=== PATIENT | female | born 1945 | race Asian ===

== ENCOUNTER 2016-07-10 10:49 | Outpatient (CLI) | payer MEDICARE, OTHER | END 2016-07-10 10:50 | disposition home or self-care (01) | DX: N63 Unspecified lump in breast (principal) | CPT/HCPCS: 76642; G0204 ==

== ENCOUNTER 2016-07-18 09:50 | Outpatient (CLI) | payer MEDICARE, OTHER ==
[2016-07-18] MEDS ORDERED: BUFFERED LIDOCAINE 10 ML SYRINGE IU ONE (15:44)
[2016-07-18] MEDS ORDERED: BUPIVACAINE 0.5% PF 30 ML VIAL ID ONE (15:51)
[2016-07-18] MEDS ORDERED: BUPIVACAINE 0.5%-EPI 1:200000 PF 10 ML VIAL ID ONE (15:54)
[2016-07-18] MEDS ORDERED: SODIUM CHLORIDE 0.9% EPI SCH (16:00)
[2016-07-18] MEDS ORDERED: BUPIVACAINE 0.5% EPI SCH (16:00)
== END 2016-07-18 09:51 | disposition home or self-care (01) ==
DX: C50.511 Malignant neoplasm of lower-outer quadrant of right female breast (principal); Z17.1 Estrogen receptor negative status [ER-]
CPT/HCPCS: 19083; G0206

== ENCOUNTER 2017-09-02 12:41 | Outpatient (CLI) | payer MEDICARE, OTHER | END 2017-09-02 12:42 | disposition home or self-care (01) | LOC: DI 12:41 | PROVIDERS: ATTEND Internal Medicine Hematology & Oncology | DX: C50.911 Malignant neoplasm of unspecified site of right female breast (principal); Z90.13 Acquired absence of bilateral breasts and nipples; I51.7 Cardiomegaly | CPT/HCPCS: 93306 ==

== ENCOUNTER 2018-02-12 14:57 | Outpatient (CLI) | payer MEDICARE, OTHER ==
--- NOTE | 2018-02-13 09:51 | DEXA Report ---
Reason: BONE DISORDER Procedure Date: 02/12/2018 Accession Number: [id number] / [id number] Procedure: DEX - Dexa Spine and/or Hip CPT Code: FULL RESULT: EXAM: Dexa Spine and/or Hip DATE: 02/12/2018 4:13 PM CLINICAL HISTORY: BONE DISORDER TECHNIQUE: Dual energy x-ray absorptiometry (DXA) was performed on a [employer] System. Regions measured are the AP Spine, femoral neck, and if needed forearm. COMPARISON: None. In accordance with the International Society for Clinical Densitometry (ISCD) guidelines, data from previous exams may be reanalyzed using current recommendations and techniques. This is done to allow a more accurate basis for comparison with the current study. FINDINGS: The data for the lumbar spine is as follows: BMD (g/cm/cm) T-SCORE Z-SCORE REGION L1 1.243 0.9 2.3 L2 1.349 1.2 2.6 L3 1.363 1.4 2.7 L4 1.405 1.7 3.0 TOTAL 1.342 1.4 2.7 NOTE: All evaluable vertebrae are used for classification The data for the hip is as follows: BMD (g/cm/cm) T-SCORE Z-SCORE REGION Neck 0.907 -0.9 0.6 TOTAL 1.020 0.1 1.4 NOTE: The femoral neck or total proximal femur, whichever is lowest, is used for classification. IMPRESSION: THE WHO CLASSIFICATION BASED ON THE INTERNATIONAL REFERENCE STANDARD IS NORMAL. THE FRACTURE RISK IS NOT INCREASED. RECOMMENDATION: Patients with diagnosis of osteoporosis or osteopenia should have regular bone mineral density assessment. For those eligible for Medicare, routine testing is allowed once every 2 years. Testing frequency can be increased for patients who have rapidly progressing disease or for those who are receiving medical therapy to restore bone mass. COMMENT: World Health Organization (WHO) definitions for osteoporosis and osteopenia: NORMAL BMD: T-score at -1.0 or higher, fracture risk is low OSTEOPENIA BMD: T-score between -1.0 and -2.5, fracture risk is increased. OSTEOPOROSIS BMD: T-score at -2.5 or lower, fracture risk is high. National Osteoporosis Foundation recommends: 1. Obtain adequate dietary calcium (at least 1200 mg per day) and vitamin D (400-800 international units per day). 2. Participate, as appropriate, in regular weightbearing and muscle-strengthening exercise. 3. Avoid tobacco use and reduce alcohol and caffeine intake. 4. For more detailed information see the website at www.NOF.org.
== END 2018-02-12 14:58 | disposition home or self-care (01) ==
LOC: DI 14:57
PROVIDERS: ATTEND Family Medicine
DX: M89.9 Disorder of bone, unspecified (principal)
CPT/HCPCS: 77080

== ENCOUNTER 2018-08-18 09:45 | Outpatient (CLI) | payer MEDICARE, OTHER ==
[2018-08-18 13:36] LABS: HB2 TOTAL 13.8 g/dL; HEMOGLOBIN A1C 0.6 g/dL; HEMOGLOBIN A1C % 6.1 % (4.6-6.2)
[2018-08-18 13:49] LABS: CHOL/HDL RATIO 3.8 (<4.4); CHOLESTEROL 132 mg/dL; HDL CHOLESTEROL 35 mg/dL; LDL CHOLESTEROL,CALCULATED 65 mg/dL; LDL/HDL RATIO 1.9 (<4.4); URIC ACID 4.1 mg/dL (2.6-7.2); VLDL CHOLESTEROL 32 mg/dL
== END 2018-08-18 09:46 | disposition home or self-care (01) ==
LOC: LAB.WCP 09:45
PROVIDERS: ATTEND Family Medicine
DX: E78.5 Hyperlipidemia, unspecified (principal); R73.01 Impaired fasting glucose; E03.9 Hypothyroidism, unspecified; M10.9 Gout, unspecified
CPT/HCPCS: 36415; 80061; 83036; 83721; 84443; 84550

== ENCOUNTER 2018-08-25 11:01 | Outpatient (CLI) | payer MEDICARE, OTHER ==
--- NOTE | 2018-08-25 13:22 | XRAY Report ---
Reason: FOOT PAIN,LEFT Procedure Date: 08/25/2018 Accession Number: [id number] / [id number] Procedure: WCP - Foot 3 View LT CPT Code: FULL RESULT: EXAM: LEFT FOOT RADIOGRAPHY EXAM DATE: 08/25/2018 11:21 AM. CLINICAL HISTORY: Foot pain, left. COMPARISON: None. TECHNIQUE: 3 views. FINDINGS: Bones: There is an oblique fracture distal diaphysis and metadiaphysis of the fifth metatarsal with 3 mm of medial displacement of distal fracture fragment. No additional fractures identified. Joints: Normal. No subluxations. Soft Tissues: There is soft tissue swelling adjacent to the fracture. IMPRESSION: Oblique fracture fifth metatarsal as described. RADIA
== END 2018-08-25 11:02 | disposition home or self-care (01) ==
LOC: DI.WCP 11:01
PROVIDERS: ATTEND Family Medicine
DX: S92.352A Displaced fracture of fifth metatarsal bone, left foot, initial encounter for closed fracture (principal)

== ENCOUNTER 2020-01-27 10:50 | Outpatient (CLI) | payer MEDICARE, OTHER ==
[2020-01-27 18:11] LABS: BASOPHILS # (AUTO) 0.1 10^3/uL (0.0-0.1); BASOPHILS % (AUTO) 1.1 %; EOSINOPHILS # (AUTO) 0.1 10^3/uL (0.0-0.7); EOSINOPHILS % (AUTO) 2.3 %; HGB - HEMOGLOBIN 13.4 g/dL (12.0-16.0); LYMPHOCYTES # (AUTO) 2.1 10^3/uL (1.5-3.5); LYMPHOCYTES % (AUTO) 36.3 %; MEAN CORPUSCULAR HEMOGLOBIN 29.3 pg (27.0-31.0); MEAN CORPUSCULAR HGB CONC 31.9 g/dL (32.0-36.0); MEAN CORPUSCULAR VOLUME 91.9 fL (81.0-99.0); MEAN PLATELET VOLUME 12.2 fL (7.9-10.8); MONOCYTES # (AUTO) 0.4 10^3/uL (0.0-1.0); MONOCYTES % (AUTO) 7.6 %; NEUTROPHILS % (AUTO) 52.3 %; PLT - PLATELET COUNT 207 10^3/uL (130-450); RED BLOOD COUNT 4.57 10^6/uL (4.20-5.40); RED CELL DISTRIBUTION WIDTH 14.7 % (12.0-15.0); WHITE BLOOD COUNT 5.7 x10^3/uL (4.8-10.8)
[2020-01-27 18:26] LABS: ALBUMIN 4.3 g/dL (3.2-5.5); ALBUMIN/GLOBULIN RATIO 1.4 (1.0-2.2); ALKALINE PHOSPHATASE 44 IU/L (42-121); ALT ALANINE AMINOTRANSFERASE 20 IU/L (10-60); AST ASPARTATE AMINOTRANSFERASE 22 IU/L (10-42); BILIRUBIN,TOTAL 0.6 mg/dL (0.2-1.0); BUN - BLOOD UREA NITROGEN 18 mg/dL (6-20); CALCIUM 9.5 mg/dL (8.5-10.3); CARBON DIOXIDE - CO2 27 mmol/L (21-32); CHLORIDE 104 mmol/L (101-111); CHOL/HDL RATIO 3.3 (<4.4); CHOLESTEROL 143 mg/dL; CREATININE 0.8 mg/dL (0.4-1.0); GLUCOSE 106 mg/dL (70-100); HDL CHOLESTEROL 43 mg/dL; LDL CHOLESTEROL,CALCULATED 77 mg/dL; LDL/HDL RATIO 1.8 (<4.4); SODIUM 139 mmol/L (135-145); TOTAL PROTEIN 7.4 g/dL (6.7-8.2); URIC ACID 3.7 mg/dL (2.6-7.2); VLDL CHOLESTEROL 23 mg/dL
[2020-01-27 18:36] LABS: CREATININE,URINE 177.4 mg/dL; MICROALBUM/CREATININE RATIO,UR 19.2 ug/mg (<30.0); MICROALBUMIN,URINE 3.4 mg/dL (0-300.0)
[2020-01-27 20:24] LABS: HEMOGLOBIN A1c% 5.8 % (4.27-6.07)
== END 2020-01-27 23:59 | disposition home or self-care (01) ==
LOC: LAB.WCP 10:50
PROVIDERS: ATTEND Family Medicine
DX: R73.01 Impaired fasting glucose (principal); E78.5 Hyperlipidemia, unspecified; M10.00 Idiopathic gout, unspecified site; E03.9 Hypothyroidism, unspecified; I10 Essential (primary) hypertension
CPT/HCPCS: 36415; 80053; 80061; 82043; 82570; 83036; 83721; 84443; 84550; 85025

== ENCOUNTER 2020-06-27 08:59 | Outpatient (CLI) | payer MEDICARE, OTHER ==
--- NOTE | 2020-06-27 11:06 | XRAY Report ---
PROCEDURE: Lumbar Spine 2 View INDICATIONS: RIGHT LUMBAR RADICULOPATHY TECHNIQUE: 2 views of the lumbar spine were acquired. COMPARISON: None. FINDINGS: Bones: 5 [id number] vertebrae are present. There is trace retrolisthesis of L2 on L3, L3 on L4 . Severe disc space narrowing is present at L5-S1, moderate L4-5, L5-S1 and mild throughout the remai nder of the lumbar spine. Severe foraminal narrowing is noted L5-S1, mild to moderate throughout the remainder of the lumbar spine. Nonbridging anterior osteophytes are present. No vertebral body compre ssion fractures. No suspicious bony lesions. Soft tissues: Overlying bowel gas pattern is normal. No suspicious soft tissue calcifications. Ath erosclerotic calcification of the aorta is present. IMPRESSION: Degenerative changes most notable at L5-S1 as above. Reviewed by: Ana Rivas MD on 06/27/2020 11:05 AM PDT Approved by: Ana Rivas MD on 06/27/2020 11:05 AM PDT Station ID: [id number]
--- NOTE | 2020-06-27 13:53 | XRAY Report ---
PROCEDURE: Hand 3 View RT INDICATIONS: RIGHT HAND PAIN TECHNIQUE: 3 views of the hand(s) acquired. COMPARISON: None FINDINGS: Bones: No fractures or dislocations. No suspicious bony lesions. There are moderate scattered IP d egenerative narrowing, moderate to severe at the DIP joints of the third and fifth digits. There is m oderate to severe first PIP joint degenerative narrowing with subluxation. Scattered areas of periart icular osteophyte are present. Soft tissues: No suspicious soft tissue calcifications. IMPRESSION: Arthritic changes as above most severe at the third and fifth digits. Reviewed by: Ana Rivas MD on 06/27/2020 1:52 PM PDT Approved by: Ana Rivas MD on 06/27/2020 1:52 PM PDT Station ID: [id number]
== END 2020-06-27 23:59 | disposition home or self-care (01) ==
LOC: DI.WCP 08:59
PROVIDERS: ATTEND Family Medicine
DX: M47.27 Other spondylosis with radiculopathy, lumbosacral region (principal); M79.641 Pain in right hand; M19.041 Primary osteoarthritis, right hand

== ENCOUNTER 2021-05-08 11:06 | Outpatient (CLI) | payer MEDICARE, OTHER ==
--- NOTE | 2021-05-08 16:21 | XRAY Report ---
PROCEDURE: Chest 2 View X-Ray INDICATIONS: COUGH TECHNIQUE: 2 view(s) of the chest. COMPARISON: None. FINDINGS: Surgical changes and devices: Surgical clips projecting over the right axilla.. Lungs and pleura: No pleural effusions or pneumothorax. Lungs are clear. Mediastinum: Mediastinal contours are normal. Heart size is normal. Bones and chest wall: No suspicious bony abnormalities. Soft tissues appear unremarkable. IMPRESSION: No acute cardiopulmonary disease process. Reviewed by: Kristen Wilkins MD, PhD on 05/08/2021 4:20 PM PST Approved by: Kristen Wilkins MD, PhD on 05/08/2021 4:20 PM PST Station ID: [id number]
== END 2021-05-08 11:07 | disposition home or self-care (01) ==
LOC: DI.N 11:06
PROVIDERS: ATTEND Family Medicine
DX: R05.9 Cough, unspecified (principal)

== ENCOUNTER 2021-07-16 10:36 | Outpatient (CLI) | payer MEDICARE, OTHER ==
--- NOTE | 2021-07-16 11:38 | XRAY Report ---
PROCEDURE: Shoulder 3 View LT INDICATIONS: L SHOULDER PX TECHNIQUE: 3 views of the shoulder were acquired. COMPARISON: None. FINDINGS: Bones: No fractures or dislocations. Moderate acromioclavicular joint and glenohumeral joint osteop hytic changes are seen. No suspicious bony lesions. Visualized ribs appear intact. Soft tissues: No suspicious soft tissue calcifications. IMPRESSION: Moderate left shoulder joint osteoarthritis. No fracture or dislocation. No gross soft t issue abnormality. Reviewed by: Bruce Giraldo MD on 07/16/2021 11:37 AM PDT Approved by: Bruce Giraldo MD on 07/16/2021 11:37 AM PDT Station ID: [id number]
== END 2021-07-16 10:37 | disposition home or self-care (01) ==
LOC: DI.N 10:36
PROVIDERS: ATTEND Family Medicine
DX: M19.012 Primary osteoarthritis, left shoulder (principal)

== ENCOUNTER 2022-08-09 11:32 | Outpatient (CLI) | payer MEDICARE, OTHER ==
[2022-08-09 17:55] LABS: BASOPHILS # (AUTO) 0.1 10^3/uL (0.0-0.1); EOSINOPHILS # (AUTO) 0.2 10^3/uL (0.0-0.7); EOSINOPHILS % (AUTO) 2.1 %; HCT - HEMATOCRIT 46.6 % (37.0-47.0); HGB - HEMOGLOBIN 14.7 g/dL (12.0-16.0); LYMPHOCYTES # (AUTO) 2.7 10^3/uL (1.5-3.5); LYMPHOCYTES % (AUTO) 37.9 %; MEAN CORPUSCULAR HEMOGLOBIN 28.8 pg (27.0-31.0); MEAN CORPUSCULAR HGB CONC 31.5 g/dL (32.0-36.0); MEAN CORPUSCULAR VOLUME 91.4 fL (81.0-99.0); MEAN PLATELET VOLUME 11.7 fL (7.9-10.8); MONOCYTES # (AUTO) 0.6 10^3/uL (0.0-1.0); MONOCYTES % (AUTO) 7.7 %; NEUTROPHILS # (AUTO) 3.6 10^3/uL (1.5-6.6); NEUTROPHILS % (AUTO) 51.2 %; PLT - PLATELET COUNT 253 10^3/uL (130-450); RED CELL DISTRIBUTION WIDTH 13.3 % (12.0-15.0); WHITE BLOOD COUNT 7.1 x10^3/uL (4.8-10.8)
[2022-08-09 18:29] LABS: ALBUMIN 4.5 g/dL (3.2-5.5); ALBUMIN/GLOBULIN RATIO 1.4 (1.0-2.2); ALKALINE PHOSPHATASE 48 IU/L (42-121); ALT ALANINE AMINOTRANSFERASE 22 IU/L (10-60); AST ASPARTATE AMINOTRANSFERASE 24 IU/L (10-42); BILIRUBIN,TOTAL 0.6 mg/dL (0.2-1.0); BUN - BLOOD UREA NITROGEN 20 mg/dL (6-20); CARBON DIOXIDE - CO2 28 mmol/L (21-32); CHLORIDE 102 mmol/L (101-111); CHOL/HDL RATIO 3.5 (<4.4); CHOLESTEROL 175 mg/dL; CREATININE 0.9 mg/dL (0.4-1.0); GFR - MDRD 61 (>89); GLUCOSE 119 mg/dL (70-100); HDL CHOLESTEROL 50 mg/dL; LDL CHOLESTEROL,CALCULATED 88 mg/dL; LDL/HDL RATIO 1.8 (<4.4); POTASSIUM 3.9 mmol/L (3.5-5.0); SODIUM 138 mmol/L (135-145); TOTAL PROTEIN 7.8 g/dL (6.7-8.2); TRIGLYCERIDES 184 mg/dL; URIC ACID 4.9 mg/dL (2.6-7.2); VLDL CHOLESTEROL 37 mg/dL
[2022-08-09 18:37] LABS: THYROID STIMULATING HORMONE 7.35 uIU/mL (0.34-5.60)
[2022-08-09 18:39] LABS: FREE T4 (FREE THYROXINE) 0.79 ng/dL (0.58-1.64)
[2022-08-09 21:29] LABS: ESTIMATED AVERAGE GLUCOSE 131 mg/dL (70-100); HEMOGLOBIN A1c% 6.2 % (4.27-6.07)
== END 2022-08-09 11:33 | disposition home or self-care (01) ==
LOC: LAB.N 11:32
PROVIDERS: ATTEND Nurse Practitioner
DX: I10 Essential (primary) hypertension (principal); E78.5 Hyperlipidemia, unspecified; R73.01 Impaired fasting glucose; E03.9 Hypothyroidism, unspecified; M10.9 Gout, unspecified
CPT/HCPCS: 36415; 80053; 80061; 83036; 83721; 84439; 84443; 84550; 85025

== ENCOUNTER 2022-08-28 12:22 | Outpatient (CLI) | payer MEDICARE, OTHER ==
--- NOTE | 2022-08-28 15:31 | DEXA Report ---
PROCEDURE: Dexa Spine and/or Hip INDICATIONS: POST MENOPAUSAL TECHNIQUE: Dual energy x-ray absorptiometry (DXA) was performed on a [employer] System. Regions measur ed are the AP Spine, femoral neck, and if needed forearm. COMPARISON: None FINDINGS: Lumbar Spine: Bone Mineral Density 1.437 g/cm/cm,T score 2.1. Normal Left Femoral Neck: Bone Mineral Density 0.913 g/cm/cm, T score -0.9. Normal Left Hip: Bone Mineral Density 1.014 g/cm/cm,T score 0.1. Normal (T score greater or equal to -1.0: NORMAL) (T score from -1.1 to -2.4: OSTEOPENIA) (T score less than or equal to -2.5 to: OSTEOPOROSIS) Impression: By WHO criteria, this patient has normal bone density. Patients with diagnosis of osteoporosis or osteopenia should have regular bone mineral density assess ment. For those eligible for Medicare, routine testing is allowed once every 2 years. Testing frequ ency can be increased for patients who have rapidly progressing disease or for those who are receivin g medical therapy to restore bone mass. Reviewed by: Janis Blunt MD on 08/28/2022 3:30 PM PDT Approved by: Janis Blunt MD on 08/28/2022 3:30 PM PDT Station ID: [id number]
== END 2022-08-28 12:23 | disposition home or self-care (01) ==
LOC: DI 12:22
PROVIDERS: ATTEND Nurse Practitioner
DX: Z78.0 Asymptomatic menopausal state (principal)

== ENCOUNTER 2023-10-27 12:45 | Outpatient (CLI) | payer MEDICARE, OTHER ==
--- NOTE | 2023-10-27 20:45 | XRAY Report ---
PROCEDURE: Chest 2V INDICATIONS: CHEST WALL PAIN TECHNIQUE: 2 views of the chest were acquired. COMPARISON: Chest radiographs 05/08/2021. FINDINGS: Surgical changes and devices: Surgical clips are seen projecting over the right lateral chest.. Lungs and pleura: No pleural effusions or pneumothorax. Lungs are clear. Mediastinum: Mediastinal contours appear normal. Heart size is normal. Bones and chest wall: No suspicious bony lesions. Overlying soft tissues appear unremarkable. IMPRESSION: No acute cardiopulmonary process. Reviewed by: Jonathan Wharton MD on 10/27/2023 8:43 PM PDT Approved by: Jonathan Wharton MD on 10/27/2023 8:43 PM PDT Station ID: [id number]
== END 2023-10-27 12:46 | disposition home or self-care (01) ==
LOC: DI.N 12:45
PROVIDERS: ATTEND Nurse Practitioner
DX: R07.89 Other chest pain (principal)